=== PATIENT | male | born 1980 | race Caucasian/White ===

== ENCOUNTER 2023-05-18 19:07 | Emergency (ER) | payer SELFPAY ==
--- NOTE | 2023-05-18 19:47 | ED ---
Fall HPI - General Source: patient, family, RN notes reviewed Mode of arrival: ambulatory Limitations: no limitations <Kristen Valles - Last Filed: 05/18/23 20:16> <Chapincito Marrero - Last Filed: 05/18/23 21:43> - General Chief Complaint: Fall Stated Complaint: Head injury Time Seen by Provider: 05/18/23 19:45 - History of Present Illness Initial Comments: 43-year-old male presented to the ER with a chief complaint of a head injury. Patient states he was rollerskating down a hill and lost control. He fell back harmon hitting his head. Patient does admit to consuming alcohol prior to rollerskating. Denies loss of consciousness, friend at bedside agree with this. Denies any blood thinner use. He does report a laceration to the back of his scalp. He states bleeding is under control currently. He does report jaw pain. Denies any dizziness or lightheadedness. Denies any other injuries, nausea/vomiting post incident. Tetanus is up-to-date. (Kristen Valles) - Related Data Allergies Allergy/AdvReac Type Severity Reaction Status Date / Time No Known Allergies Allergy Verified 05/18/23 19:50 Review of Systems ROS Other: All systems not noted in ROS Statement are negative. <Kristen Valles - Last Filed: 05/18/23 20:16> ROS Other: All systems not noted in ROS Statement are negative. <Chapincito Marrero - Last Filed: 05/18/23 21:43> ROS Statement: Those systems with pertinent positive or pertinent negative responses have been documented in the HPI. Past Medical History Past Medical History: No Reported History History of Any Multi-Drug Resistant Organisms: None Reported Past Surgical History: No Surgical Hx Reported Past Psychological History: No Psychological Hx Reported Smoking Status: Never smoker Past Alcohol Use History: Occasional Past Drug Use History: None Reported <Kristen Valles - Last Filed: 05/18/23 20:16> General Exam Limitations: no limitations General appearance: alert, in no apparent distress Head exam: Present: atraumatic, normocephalic, normal inspection, other (2 centimeter laceration to posterior scalp. No active bleeding.) Eye exam: Present: normal appearance, PERRL, EOMI. Absent: scleral icterus, conjunctival injection, periorbital swelling Pupils: Present: normal accommodation ENT exam: Present: normal exam, normal oropharynx, mucous membranes moist Neck exam: Present: normal inspection. Absent: tenderness, meningismus, lymphadenopathy Respiratory exam: Present: normal lung sounds bilaterally. Absent: respiratory distress, wheezes, rales, rhonchi, stridor Cardiovascular Exam: Present: regular rate, normal rhythm, normal heart sounds. Absent: systolic murmur, diastolic murmur, rubs, gallop, clicks GI/Abdominal exam: Present: soft, normal bowel sounds. Absent: distended, tenderness, guarding, rebound, rigid Extremities exam: Present: normal inspection, full ROM, normal capillary refill. Absent: tenderness, pedal edema, joint swelling, calf tenderness Back exam: Present: normal inspection Neurological exam: Present: alert, oriented X3, CN II-XII intact Psychiatric exam: Present: normal affect, normal mood Skin exam: Present: warm, dry, intact, normal color. Absent: rash <Kristen Valles - Last Filed: 05/18/23 20:16> Limitations: no limitations General appearance: alert, in no apparent distress Head exam: Present: atraumatic Eye exam: Present: normal appearance, PERRL, EOMI Pupils: Present: normal accommodation Neck exam: Present: normal inspection Respiratory exam: Absent: respiratory distress Cardiovascular Exam: Present: regular rate Neurological exam: Present: alert, oriented X3 Expanded Patient oriented to: Present: person, place, time Speech: Present: fluid speech Cranial nerves: EOM's Intact: Normal Motor strength exam: RUE: 5, LUE: 5, RLE: 5, LLE: 5 Eye Response: (4) open spontaneously Motor Response: (6) obeys commands Verbal Response: (5) oriented Jude Total: 15 Psychiatric exam: Present: normal affect, normal mood <Chapincito Marrero - Last Filed: 05/18/23 21:43> Course Vital Signs 05/18/23 05/18/23 19:12 21:29 Temperature 97.6 F Pulse Rate 66 70 Respiratory 18 16 Rate Blood Pressure 157/83 160/75 O2 Sat by Pulse 98 98 Oximetry Procedures - Laceration Laceration #1 Consent Obtained: verbal consent Indication: laceration Site: scalp Size (cm): 3 Description: linear Depth: simple, single layer Pre-repair: wound explored, irrigated extensively, deep structures intact Size of Sutures: other (dermal kiara) Number of Sutures: 5 Patient Tolerated Procedure: well, no complications <Kristen Valles - Last Filed: 05/18/23 20:16> Medical Decision Making <Kristen Valles - Last Filed: 05/18/23 20:16> <Chapincito Marrero - Last Filed: 05/18/23 21:43> - Medical Decision Making Was pt. sent in by a medical professional or institution (, MELANIE, FLORIST MANAGER, urgent care, hospital, or fci...) When possible be specific @ -No Did you speak to anyone other than the patient for history (EMS, parent, family, police, friend...)? What history was obtained from this source @ -Friend aiding in HPI Did you review nursing and triage notes (agree or disagree)? Why? @ -I reviewed and agree with nursing and triage notes Were old charts reviewed (outside hosp., previous admission, EMS record, old EKG, old radiological studies, urgent care reports/EKG's, fci records)? Report findings @ -No old charts were reviewed Differential Diagnosis (chest pain, altered mental status, abdominal pain women, abdominal pain men, vaginal bleeding, weakness, fever, dyspnea, syncope, headache, dizziness, GI bleed, back pain, seizure, CVA, palpatations, mental health, musculoskeletal)? @ -Contusion, hematoma, intracranial hemorrhage, skull fracture, laceration, concussion this list is not meant to be all-inclusive EKG interpreted by me (3pts min.). @ -None X-rays interpreted by me (1pt min.). @ -None done CT interpreted by me (1pt min.). @ -Pending U/S interpreted by me (1pt. min.). @ -None done What testing was considered but not performed or refused? (CT, X-rays, U/S, labs)? Why? @ -None What meds were considered but not given or refused? Why? @ -None Did you discuss the management of the patient with other professionals (professionals i.e. MELANIE Jesus, FLORIST MANAGER, lab, RT, psych nurse, social services, billet straightener, teacher, weapons electrical engineering officer, hospice case manager)? Give summary @ -No Was smoking cessation discussed for >3mins.? @ -No Was critical care preformed (if so, how long)? @ -No Were there social determinants of health that impacted care today? How? (Homelessness, low income, unemployed, alcoholism, drug addiction, transportation, low edu. Level, literacy, decrease access to med. care, correction, rehab)? @ -No Was there de-escalation of care discussed even if they declined (Discuss DNR or withdrawal of care, Hospice)? DNR status @ -No What co-morbidities impacted this encounter? (DM, HTN, Smoking, COPD, CAD, Cancer, CVA, ARF, Chemo, Hep., AIDS, mental health diagnosis, sleep apnea, morbid obesity)? @ -None Was patient admitted / discharged? Hospital course, mention meds given and route, prescriptions, significant lab abnormalities, going to OR and other pertinent info. @ -43-year-old male presented to the ER with a chief complaint of head injury. History and physical exam completed. Vitals stable. Patient no signs of acute distress and nontoxic-appearing. No acute neurological findings on exam. 3 cm laceration to posterior scalp. Laceration closed using 5 dermal kiara. Patient tolerated procedure well. Tetanus is up-to-date. CT results pending. Patient signed out to Chapincito Marrero PA-C pending disposition and CT results. (Kristen Valles) Patient was signed out to me by Kristen Valles PA-C. He was found to have an 11mm focal area of acute parenchymal hemorrhage in the left caudate nucleus and the a nterior commissure. He will be transferred to [facility]. Accepting physician is Dr. Yepez. Patient is agreeable with this plan. I discussed this case with attending Dr. Jesus. (Chapincito Marrero) Disposition <Kristen Valles - Last Filed: 05/18/23 20:16> Time of Disposition: 20:38 - Out of Hospital Transfer - Req. Specs Out of Hospital Transfer - Requested Specifics: Other Emergency Center ([facility]) <Chapincito Marrero - Last Filed: 05/18/23 21:43> Clinical Impression: Cerebral parenchymal hemorrhage Disposition: OTHER INSTITUTION NOT DEFINED Condition: Stable Referrals: Mariah Woods MD [Primary Care Provider] - 1-2 days
[2023-05-18 20:06] VITALS: TEMP 97.6
--- NOTE | 2023-05-18 20:18 | CT ---
EXAMINATION TYPE: CT brain [facility] DATE OF EXAM: 05/18/2023 COMPARISON: None HISTORY: Fell down hill while rollerblading, head injury. CT DLP: 1686.4 mGycm Automated exposure control for dose reduction was used. TECHNIQUE: CT scan of the head and cervical spine are performed without contrast. Findings: Head CT: Ventricles, basal cisterns and sulci over convexities within normal limits and there is no mass, mass effect or shift of midline structures. There is a small 11 mm focal area of acute parenchymal hemorrhage involving the left caudate is this extending into the left anterior commissure. Posterior fossa including the brainstem, fourth ventricle and cerebellar pontine angles are grossly n ormal. The intraorbital contents appear normal and symmetric. Visualized paranasal sinuses are well aerated. There is a scalp laceration and hematoma overlying the occipital bone. There is no skull fracture. CT cervical spine: Craniovertebral junction relationships and prevertebral soft tissues are normal. The cervical vertebral segments are normal in height and alignment and there is no fracture subluxati on. The disc spaces are well-maintained in height and there is no significant degenerative disc disease. The bony cervical canal is widely patent and there is no bony encroachment of the neural foramina. The paraspinal soft tissues unremarkable. IMPRESSION: 1. Small focal area of acute parenchymal hemorrhage in the left caudate nucleus and the anterior comm issure. 2. Scalp hematoma and laceration over the occipital bone without skull fracture. 2. CT cervical spine: No acute trauma.
[2023-05-18 21:57] VITALS: BP 160/75; PULSE 70; RESP 16
== END 2023-05-18 21:31 | disposition other institution (70) ==
LOC: EDBD → EC 19:07
DX: S06.350A Traumatic hemorrhage of left cerebrum without loss of consciousness, initial encounter (principal); S01.01XA Laceration without foreign body of scalp, initial encounter; V00.111A Fall from in-line roller-skates, initial encounter
CPT/HCPCS: 12002; 70450; 72125; 99284; 99285